=== PATIENT | male | born 1985 | race Caucasian/White ===

== ENCOUNTER 2016-12-29 01:12 | Emergency (ER) | payer SELFPAY ==
[2016-12-29] MEDS ORDERED: Ketorolac Tromethamine 30 MG/ML VIAL ONE (01:47)
[2016-12-29] MEDS ORDERED: Lidocaine Viscous Sol 2% 15 ml UD Cup ONE (01:48)
== END 2016-12-29 02:23 | disposition home or self-care (01) ==
LOC: ERS 01:12
DX: K04.7 Periapical abscess without sinus (principal); K02.9 Dental caries, unspecified; F17.210 Nicotine dependence, cigarettes, uncomplicated
CPT/HCPCS: 96372; J1885